=== PATIENT | female | born 1980 | race Caucasian/White ===

== ENCOUNTER 2017-12-18 11:49 | Emergency (ER) | payer OTHER ==
[~2017-12-18] VITALS: Ht 172.7 cm; Wt 144.0 kg
[2017-12-18 11:55] VITALS: TEMP 36.4; Ht 172.7 cm; Wt 144.0 kg
[2017-12-18] MEDS ORDERED: SODIUM CHLORIDE 0.9% 1000ML 1,000 ML IV STA (12:49)
[2017-12-18] MEDS ORDERED: ONDANSETRON INJ 2 MG/ML 2 ML VIAL IV STA (12:49)
[2017-12-18 13:05] LABS: BASO % 0.2 %; BASO ABS # 0.01 K/uL (0-0.2); EOS % 0.8 %; EOS ABS # 0.05 K/uL (0-0.5); HEMATOCRIT 43.5 % (37-47); HEMOGLOBIN 15.3 g/dL (12.0-16.0); IG# 0.02 K/uL (0.00-0.02); LYMPH % 15.8 %; LYMPH ABS # 0.98 K/uL (1.2-3.4); MEAN CELL VOLUME 83.2 fL (80-100); MEAN CORPUSCULAR HEMOGLOBIN 29.3 pg (25-34); MEAN CORPUSCULAR HGB CONC 35.2 g/dl (32-36); MEAN PLATELET VOLUME 9.4 fL (7.4-10.4); MONO % 6.8 %; MONO ABS # 0.42 K/uL (0.11-0.59); NEUT % 76.1 %; NEUT ABS # 4.71 K/uL (1.4-6.5); PLATELET COUNT 170 K/uL (130-400); RED CELL DISTRIBUTION WIDTH CV 12.9 % (11.5-14.5); RED CELL DISTRIBUTION WIDTH SD 38.6 fL (36.4-46.3); WHITE BLOOD COUNT 6.19 K/uL (4.8-10.8)
--- NOTE | 2017-12-18 13:05 | EMERGENCY ROOM VISIT NOTE ---
History Report prepared by Sowmya: Dutch Witt Under the Supervision of: Dr. Tano Magallon D.O. First contact with patient: 12:39 Chief Complaint: NAUSEA Stated Complaint: VOMITING, DIARRHEA Nursing Triage Summary: pt here with nausea, upper abd pains, right back pain since last pm. pt states hx of ibs. pt states went 2 weeks without bm, last night went to bathroom, states first was black tarry, then was flesh colored, now is more yellow watery stool. History of Present Illness The patient is a 37 year old female who presents to the Emergency Room with complaints of a persistent illness that started yesterday afternoon. She states that she has a thyroid issue, and probably has IBS. The patient says that she goes through periods of constipation and diarrhea, and usually she vomits up bile during these episodes. The patient also gets black tarry stool at times. She says that she had not had a bowel movement in 2 weeks and it was getting uncomfortable for her. The patient states that she then had a bowel movement last night that was black and tarry. She says that afterward, she felt like something stabbed her in her lower right back. The patient states that she then had episodes of diarrhea overnight that was pale in color. She says that she started having episodes of vomiting this morning that was pale and foamy. The patient states that she usually feels better after vomiting, but after these episodes, she still feels badly. She says that she still has the back pain, and she has bad upper abdominal pain. The patient went to [facility] and was told to come here. She notes that her stool is currently more yellow and watery. She denies any chest pain. The patient notes no recent antibiotic use. She occasionally smokes cigarettes, but does not drink alcohol. She has a history of a complete hysterectomy. She notes that she has taken 4 Colace in the past week without relief. Source of History: patient Onset: Yesterday afternoon Position: other (global ) Quality: other (illness) Timing: other (persistent) Associated Symptoms: + vomiting, + abdominal pain, + back pain, + melena ( not new), + diarrhea, No chest pain Review of Systems See HPI for pertinent positives & negatives. A total of 10 systems reviewed and were otherwise negative. Past Medical & Surgical Medical Problems: (1) Constipation (2) Thyroid condition Surgical Problems: (1) H/O: hysterectomy Family History No pertinent family history Social History Smoking Status: Current Some Day Smoker Alcohol Use: none Drug Use: none Occupation Status: unemployed Current/Historical Medications Scheduled Docusate Sodium (Colace), 1 CAP PO BID Ondasetron Odt (Zofran Odt), 4 MG SL Q6H Scheduled PRN Oxycodone Immediate Rel Tab (Roxicodone Ir), 1-2 TAB PO Q4H PRN for Severe Pain Allergies Coded Allergies: Aspirin (Unverified Allergy, Intermediate, Vomiting, 12/18/17) Codeine (Unverified Allergy, Intermediate, Upset Stomach, 12/18/17) Physical Exam Vital Signs Date Time Temp Pulse Resp B/P (MAP) Pulse Ox O2 Delivery O2 Flow Rate FiO2 12/18/17 14:50 95 18 111/69 99 12/18/17 13:54 89 18 120/82 99 Room Air 12/18/17 11:55 36.4 111 16 137/92 98 Room Air Physical Exam GENERAL: Patient is awake, alert, and in no acute distress. Patient is resting comfortably and showing no signs of anxiety EYES: The conjunctivae are clear. The pupils are round and reactive. EARS, NOSE, MOUTH AND THROAT: The nose is without any evidence of any deformity. Mucous membranes are moist tongue is midline NECK: The neck is nontender and supple. RESPIRATORY: Normal respiratory effort is noted there is no evidence of wheezing rhonchi or rales CARDIOVASCULAR: Regular rate and rhythm noted there no murmurs rubs or gallops normal S1 normal S2 GASTROINTESTINAL: The abdomen is moderately distended and diffusely tender. There is significant epigastric and right upper quadrant tenderness to palpation. MUSCULOSKELETAL/EXTREMITIES: There is no evidence of gross deformity full range of motion is noted in the hips and shoulders SKIN: There is no obvious evidence of any rash. There are no petechiae, pallor or cyanosis noted. NEUROLOGIC: Patient is awake alert and oriented x3 strength is symmetric patellar reflexes are 2+ bilaterally Medical Decision & Procedures ER Provider Diagnostic Interpretation: Radiology results as stated below per my review and radiologist interpretation: SINGLE VIEW CHEST CLINICAL HISTORY: Generalized abdominal pain. Vomiting. FINDINGS: An AP, portable, upright chest radiograph is obtained. No prior studies are available for comparison at the time of dictation. The examination is mildly degraded by portable technique and patient rotation. The cardiomediastinal silhouette is unremarkable. The lungs and pleural spaces are clear. No pneumothorax is seen. The bony thorax is grossly intact. IMPRESSION: No active disease in the chest. Electronically signed by: Javan Mcdaniel M.D. 12/18/2017 1:12 PM Dictated Date/Time: 12/18/2017 1:11 PM A[address]OMEN AND PELVIS CT WITHOUT CONTRAST CT DOSE: 1232.84 mGycm HISTORY: right flank pain TECHNIQUE: Multiaxial CT images of the abdomen and pelvis were performed without contrast. A dose lowering technique was utilized adhering to the principles of ALARA. COMPARISON STUDY: None. FINDINGS: The lung bases are clear. No pneumoperitoneum. No pneumatosis. No fractures within the visualized osseous structures. No hepatic or splenic masses. Hepatic steatosis. The unenhanced gallbladder, pancreas, and adrenal glands are unremarkable. No renal or ureteral calculi. No hydronephrosis. The bladder is not well-distended but appears unremarkable. No retroperitoneal lymphadenopathy. The uterus is surgically absent. Suboptimal evaluation for bowel pathology due to the lack of intravenous and oral contrast. However, there is no definite bowel wall thickening or obstruction. Liquid stool within the colon. Normal appendix. IMPRESSION: 1. No bowel wall thickening or obstruction. 2. Liquid stool throughout the colon. This could represent a gastroenteritis. 3. No renal or ureteral calculi. No hydronephrosis. 4. Normal appendix. Electronically signed by: Lukasz Singh M.D. 12/18/2017 1:30 PM Dictated Date/Time: 12/18/2017 1:23 PM Laboratory Results 12/18/17 12:55 Red Blood Count 5.23, Mean Corpuscular Volume 83.2, Mean Corpuscular Hemoglobin 29.3, Mean Corpuscular Hemoglobin Concent 35.2, Mean Platelet Volume 9.4, Neutrophils (%) (Auto) 76.1, Lymphocytes (%) (Auto) 15.8, Monocytes (%) (Auto) 6.8, Eosinophils (%) (Auto) 0.8, Basophils (%) (Auto) 0.2, Neutrophils # (Auto) 4.71, Lymphocytes # (Auto) 0.98, Monocytes # (Auto) 0.42, Eosinophils # (Auto) 0.05, Basophils # (Auto) 0.01 12/18/17 12:55 Test 4/6/18 12:55 12/18/17 13:56 White Blood Count 6.19 K/uL (4.8-10.8) Red Blood Count 5.23 M/uL (4.2-5.4) Hemoglobin 15.3 g/dL (12.0-16.0) Hematocrit 43.5 % (37-47) Mean Corpuscular Volume 83.2 fL (80-100) Mean Corpuscular Hemoglobin 29.3 pg (25-34) Mean Corpuscular Hemoglobin Concent 35.2 g/dl (32-36) Platelet Count 170 K/uL (130-400) Mean Platelet Volume 9.4 fL (7.4-10.4) Neutrophils (%) (Auto) 76.1 % Lymphocytes (%) (Auto) 15.8 % Monocytes (%) (Auto) 6.8 % Eosinophils (%) (Auto) 0.8 % Basophils (%) (Auto) 0.2 % Neutrophils # (Auto) 4.71 K/uL (1.4-6.5) Lymphocytes # (Auto) 0.98 K/uL (1.2-3.4) Monocytes # (Auto) 0.42 K/uL (0.11-0.59) Eosinophils # (Auto) 0.05 K/uL (0-0.5) Basophils # (Auto) 0.01 K/uL (0-0.2) RDW Standard Deviation 38.6 fL (36.4-46.3) RDW Coefficient of Variation 12.9 % (11.5-14.5) Immature Granulocyte % (Auto) 0.3 % Immature Granulocyte # (Auto) 0.02 K/uL (0.00-0.02) Anion Gap 5.0 mmol/L (3-11) Est Creatinine Clear Calc Drug Dose 181.2 ml/min Estimated GFR () 132.4 Estimated GFR (Non- 114.2 BUN/Creatinine Ratio 14.0 (10-20) Calcium Level 8.4 mg/dl (8.5-10.1) Total Bilirubin 0.5 mg/dl (0.2-1) Direct Bilirubin 0.1 mg/dl (0-0.2) Aspartate Amino Transf (AST/SGOT) 40 U/L (15-37) Alanine Aminotransferase (ALT/SGPT) 49 U/L (12-78) Alkaline Phosphatase 78 U/L (45-117) Total Protein 7.3 gm/dl (6.4-8.2) Albumin 3.3 gm/dl (3.4-5.0) Lipase 68 U/L (73-393) Urine Color DK YELLOW Urine Appearance CLEAR (CLEAR) Urine pH 5.0 (4.5-7.5) Urine Specific [place] 1.025 (1.000-1.030) Urine Protein NEG (NEG) Urine Glucose (UA) NEG (NEG) Urine Ketones NEG (NEG) Urine Occult Blood NEG (NEG) Urine Nitrite NEG (NEG) Urine Bilirubin NEG (NEG) Urine Urobilinogen NEG (NEG) Urine Leukocyte Esterase NEG (NEG) Laboratory results per my review. Medications Administered Medications (Trade) Dose Ordered Sig/Davin Route Start Time Stop Time Status Last Admin Dose Admin Ondansetron HCl (Zofran Inj) 4 mg NOW STAT IV 12/18/17 12:49 12/18/17 12:50 DC 12/18/17 13:02 4 MG Sodium Chloride 1,000 ml @ 999 mls/hr Q1H1M STAT IV 12/18/17 12:49 12/18/17 13:49 DC 12/18/17 13:02 999 MLS/HR ED Course 1241: The patient was evaluated in room A9B. A complete history and physical examination were performed. 1249: NSS 1000 ml @ 999 mls/hr IV, Zofran Inj 4 mg IV. 1436: Upon reevaluation, the patient is resting. I discussed the results and treatment plan with her. She verbalized agreement of the treatment plan. She was discharged home. Medical Decision Differential diagnosis: Etiologies such as appendicitis, diverticulitis, PUD, biliary pathology, UTI, pancreatitis, obstruction, mesenteric ischemia, aortic pathology, infections, inflammatory bowel disease, renal colic, as well as others were entertained. Nursing notes reviewed. The patient is a 37-year-old female who presented to the emergency department for an evaluation of upper abdominal pain nausea and vomiting and diarrhea. The patient's physical exam was consistent with significant upper abdominal pain. For this reason radiographic studies were obtained. The patient was treated with IV fluids and IV anti-medics. On subsequent reevaluation she was somewhat improved. I discussed patient's laboratory and radiographic studies with her. She was encouraged to rest and avoid any strenuous activity. She was encouraged to continue all medications as prescribed and follow-up with her family doctor soon as possible. Otherwise I recommended that she return the emergency department immediately if symptoms change worsen or the need arises. Medication Reconcilliation Current Medication List: was personally reviewed by me Blood Pressure Screening Patient's blood pressure: Elevated blood pressure Blood pressure disposition: Elevated BP felt to be situational Impression Primary Impression: Nausea, vomiting and diarrhea Additional Impression: Epigastric abdominal pain Scribe Attestation The scribe's documentation has been prepared under my direction and personally reviewed by me in its entirety. I confirm that the note above accurately reflects all work, treatment, procedures, and medical decision making performed by me. Departure Information Dispostion Home / Self-Care Prescriptions Oxycodone Immediate Rel Tab (ROXICODONE IR) 5 Mg Tab 1-2 TAB PO Q4H Y for Severe Pain, #20 TAB Prov: Tano Magallon, DO 12/18/17 Ondasetron Odt (ZOFRAN ODT) 4 Mg Tab 4 MG SL Q6H for Nausea, #20 TAB Prov: Tano Magallon, DO 18 Referrals Andrez Márquez M.D. (PCP) Patient Instructions ED Nausea Vomiting, [facility] Additional Instructions Continue all medications as prescribed. Drink plenty clear liquids. Call your family doctor to schedule a follow-up appointment for as soon as possible. Continue using Motrin and Tylenol as directed for mild pain. Return to the emergency department immediately if symptoms change worsen or the need arises. Problem Qualifiers
--- NOTE | 2017-12-18 13:14 | DIAGNOSTIC IMAGING REPORT ---
SINGLE VIEW CHEST CLINICAL HISTORY: Generalized abdominal pain. Vomiting. FINDINGS: An AP, portable, upright chest radiograph is obtained. No prior studies are available for comparison at the time of dictation. The examination is mildly degraded by portable technique and patient rotation. The cardiomediastinal silhouette is unremarkable. The lungs and pleural spaces are clear. No pneumothorax is seen. The bony thorax is grossly intact. IMPRESSION: No active disease in the chest. Electronically signed by: Javan Mcdaniel M.D. 12/18/2017 1:12 PM Dictated Date/Time: 12/18/2017 1:11 PM
[2017-12-18 13:20] LABS: ALBUMIN 3.3 gm/dl (3.4-5.0); CALCIUM 8.4 mg/dl (8.5-10.1); CREATININE 0.65 mg/dl (0.60-1.20); POTASSIUM 3.6 mmol/L (3.5-5.1)
[2017-12-18 13:23] LABS: TOTAL PROTEIN 7.3 gm/dl (6.4-8.2)
--- NOTE | 2017-12-18 13:32 | DIAGNOSTIC IMAGING REPORT ---
ABDOMEN AND PELVIS CT WITHOUT CONTRAST CT DOSE: 1232.84 mGycm HISTORY: right flank pain TECHNIQUE: Multiaxial CT images of the abdomen and pelvis were performed without contrast. A dose lowering technique was utilized adhering to the principles of ALARA. COMPARISON STUDY: None. FINDINGS: The lung bases are clear. No pneumoperitoneum. No pneumatosis. No fractures within the visualized osseous structures. No hepatic or splenic masses. Hepatic steatosis. The unenhanced gallbladder, pancreas, and adrenal glands are unremarkable. No renal or ureteral calculi. No hydronephrosis. The bladder is not well-distended but appears unremarkable. No retroperitoneal lymphadenopathy. The uterus is surgically absent. Suboptimal evaluation for bowel pathology due to the lack of intravenous and oral contrast. However, there is no definite bowel wall thickening or obstruction. Liquid stool within the colon. Normal appendix. IMPRESSION: 1. No bowel wall thickening or obstruction. 2. Liquid stool throughout the colon. This could represent a gastroenteritis. 3. No renal or ureteral calculi. No hydronephrosis. 4. Normal appendix. Electronically signed by: Lukasz Singh M.D. 12/18/2017 1:30 PM Dictated Date/Time: 12/18/2017 1:23 PM
[2017-12-18] MEDS ORDERED: DOCU-94 PO (13:42)
[2017-12-18] MEDS ORDERED: ONDA4TAB10 SL (14:38)
[2017-12-18] MEDS ORDERED: OXYC1TAB3 PO (14:38)
[2017-12-18 14:50] VITALS: BP 111/69; PULSE 95; O2SAT 99
== END 2017-12-18 14:51 | disposition home or self-care (01) ==
LOC: C.EDB 11:52 → C.EDA 14:51
DX: R10.13 Epigastric pain (principal); R11.2 Nausea with vomiting, unspecified; R19.7 Diarrhea, unspecified; R03.0 Elevated blood-pressure reading, without diagnosis of hypertension; Z88.6 Allergy status to analgesic agent

== ENCOUNTER 2017-12-21 11:14 | Emergency (ER) | payer OTHER ==
[~2017-12-21] VITALS: Ht 172.7 cm; Wt 144.4 kg
[~2017-12-21 11:14] MED LIST: DOCU-94 PO; ONDA4TAB10 SL; OXYC1TAB3 PO
[2017-12-21 11:29] VITALS: TEMP 36.8; Ht 172.7 cm; Wt 144.4 kg
[2017-12-21] MEDS ORDERED: SODIUM CHLORIDE 0.9% 1000ML 1,000 ML IV STA (13:36)
[2017-12-21] MEDS ORDERED: MoRPHine SULFATE 10 MG/ML CARP/VIAL IV STA (13:36)
[2017-12-21] MEDS ORDERED: ONDANSETRON INJ 2 MG/ML 2 ML VIAL IV STA (13:36)
[2017-12-21] MEDS ORDERED: OPTIRAY 320 IV PRN (13:45)
[2017-12-21 14:17] LABS: BASO % 0.3 %; BASO ABS # 0.02 K/uL (0-0.2); EOS % 2.3 %; EOS ABS # 0.14 K/uL (0-0.5); HEMATOCRIT 43.9 % (37-47); HEMOGLOBIN 15.5 g/dL (12.0-16.0); IG# 0.01 K/uL (0.00-0.02); LYMPH % 28.4 %; LYMPH ABS # 1.72 K/uL (1.2-3.4); MEAN CELL VOLUME 82.8 fL (80-100); MEAN CORPUSCULAR HEMOGLOBIN 29.2 pg (25-34); MEAN CORPUSCULAR HGB CONC 35.3 g/dl (32-36); MEAN PLATELET VOLUME 9.4 fL (7.4-10.4); MONO ABS # 0.36 K/uL (0.11-0.59); NEUT % 62.8 %; PLATELET COUNT 190 K/uL (130-400); RED CELL DISTRIBUTION WIDTH CV 12.9 % (11.5-14.5); RED CELL DISTRIBUTION WIDTH SD 38.6 fL (36.4-46.3); WHITE BLOOD COUNT 6.05 K/uL (4.8-10.8)
[2017-12-21 14:35] LABS: BLOOD UREA NITROGEN 6 mg/dl (7-18); CREATININE 0.56 mg/dl (0.60-1.20); GLUCOSE 87 mg/dl (70-99); POTASSIUM 3.3 mmol/L (3.5-5.1); SODIUM 136 mmol/L (136-145)
[2017-12-21 14:36] LABS: ALBUMIN 3.6 gm/dl (3.4-5.0); ALT/SGPT 99 U/L (12-78); AST/SGOT 80 U/L (15-37); CALCIUM 8.5 mg/dl (8.5-10.1); CARBON DIOXIDE 25 mmol/L (21-32); LIPASE 73 U/L (73-393)
[2017-12-21 14:38] LABS: ALKALINE PHOSPHATASE 85 U/L (45-117); TOTAL PROTEIN 7.4 gm/dl (6.4-8.2)
--- NOTE | 2017-12-21 14:50 | EMERGENCY ROOM VISIT NOTE ---
ED Visit Note First contact with patient: 13:01 CHIEF COMPLAINT: Abdominal pain, nausea HISTORY OF PRESENTING ILLNESS: This is a 37-year-old female who presents to the emergency department with complaint of right-sided abdominal pain. Patient states that she started having symptoms of lower back pain with vomiting and diarrhea 3-4 days ago. She was seen in this emergency department on Thursday, had a CT of the abdomen and states she was told "I was just full of stool." Patient was discharged home on oxycodone and Zofran, which she states she has been taking as needed. She states that her vomiting and diarrhea stopped yesterday, but she continues to have nausea. She also complains of lightheadedness and feeling like she might pass out, but denies any syncope. Her pain moved from her back into her right side yesterday as well and has become constant and more severe. She states now her whole abdomen feels bloated and hard, and pain on her right side has been severe, she is unable to get comfortable in any position, currently rates the pain as 6/10. She states that she feels like she needs to have a bowel movement and has not been unable to, but states that she has been passing gas. She reports a history of IBS where she fluctuates between diarrhea and constipation, but states she has never gotten pain like this with her IBS flares in the past. She had a follow- up visit with her primary care provider today from her ED visit a few days ago, they sent her to the ED for further evaluation. She denies any headaches, vision changes, neck pain, chest pain, shortness of breath, urinary symptoms, abnormal vaginal bleeding or discharge, or rash. She has a history of a partial hysterectomy, states the left one ovary, and also had 2 C-sections and an exploratory laparotomy for removing adhesions around her bladder. She has not had anything to eat today, and has only had small sips of water, which she states she has been able to keep down. REVIEW OF SYSTEMS: A complete 10 point review of systems was reviewed with the patient with pertinent positives and negatives as per history of present illness. All else were negative. PAST MEDICAL HISTORY: Reviewed in chart. SOCIAL HISTORY: Lives at home. She is a current smoker, denies alcohol or recreational drug use. ALLERGIES: Reviewed in chart. PHYSICAL EXAM: CONSTITUTIONAL: Pleasant and cooperative. No acute distress, but does appear uncomfortable and in pain. Tearful during the exam. Mildly dehydrated, but otherwise well appearing and well nourished. Obese. HEENT: Normocephalic, atraumatic. Pupils equal, round and reactive to light, EOMI. TMs normal. Pharynx normal. Tacky mucous membranes. NECK: Supple, full active range of motion without discomfort. RESPIRATORY: Clear to auscultation bilaterally with no wheezing, crackles, rhonchi or stridor. Equal expansion bilaterally. CARDIOVASCULAR: Regular rate and rhythm with no murmurs, rubs or gallops. Normal peripheral perfusion. No edema. GASTROINTESTINAL: Soft, moderately tender in the right upper and lower quadrant to palpation, positive guarding of the right side of the abdomen, no rebound tenderness. Obese abdomen, mildly distended. Positive McBurney's and Rovsing. No palpable masses or HSM. Hypoactive bowel sounds throughout all quadrants. No CVA tenderness bilaterally. MUSCULOSKELETAL: Full range of motion of all joints without discomfort. INTEGUMENTARY: No rash or other significant dermatologic conditions noted. NEUROLOGIC: Alert and oriented X 4 with normal affect. Normal strength and sensation in all 4 extremities. No focal neurologic deficits noted. Normal speech. Normal gait observed. ED COURSE AND MEDICAL DECISION MAKING: CC: Patient presenting with complaint of abdominal pain and nausea, lightheadedness DIFFERENTIAL DIAGNOSIS: Includes, but not limited to appendicitis, cholecystitis, cholelithiasis, pancreatitis, GERD, gastritis, gastroenteritis, PUD, constipation, inflammatory bowel disease, IBS, diverticulitis, mesenteric adenitis, among others. INTERPRETATION OF LABS: No leukocytosis, no anemia, mild hypokalemia, no other significant electrolyte abnormalities, normal renal function, mildly elevated transaminases, liver enzymes otherwise normal, normal lipase. UA negative, negative urine . IMAGING: GALLBLADDER-ABD LIMITED HISTORY: 37 years-old Female RUQ pain, eval GB acute right upper quadrant abdominal pain COMPARISON: CT abdomen and pelvis 12/18/2017 TECHNIQUE: Multiple real-time sonographic images of the abdominal right upper quadrant were obtained assessing grayscale appearance and color flow. FINDINGS: The study is limited secondary to patient body habitus. Pancreas is not well seen. There is mildly increased echogenicity of the liver with poor through transmission which reflect mild fatty infiltration. No intrahepatic biliary ductal dilation. Gallbladder is sub-visualized secondary to body habitus. Layering shadowing gallstones with gallbladder sludge are seen within the gallbladder lumen. No wall thickening or pericholecystic fluid collections. Sonographic Handy sign reported as negative. Common bile duct is normal, 5 mm. Right kidney measures 13.5 cm in length and is within normal limits without hydronephrosis. IMPRESSION: 1. Limited study secondary to patient body habitus. 2. Cholelithiasis without sonographic evidence of acute cholecystitis or biliary ductal dilation. ----- CT SCAN OF THE ABDOMEN AND PELVIS WITH IV CONTRAST CLINICAL HISTORY: Right-sided abdominal pain. COMPARISON STUDY: Abdominal CT dated 12/18/2017. Abdominal ultrasound dated 12/21/2017. TECHNIQUE: Following the IV administration of 120 cc of Optiray 320, CT scan of the abdomen and pelvis is performed from the lung bases to the proximal femora. Images are reviewed in the axial, sagittal, and coronal planes. IV contrast was administered without complication. A dose lowering technique was utilized adhering to the principles of ALARA. The examination is degraded by large body habitus, and by streak artifact from the body wall abutting the CT gantry. CT DOSE: 1878.27 mGy.cm FINDINGS: Lung bases: The heart is normal in size and without pericardial effusion. The lung bases are clear noting dependent atelectasis. Liver: The contrast-enhanced liver is enlarged, measuring 21.0 cm and length. The liver demonstrates diffusely diminished attenuation consistent with hepatic steatosis. There is no intrahepatic biliary ductal dilatation. The hepatic veins and portal veins are patent. Gallbladder: Unremarkable. Spleen: Spleen is enlarged, measuring 15 cm in length. Pancreas: Atrophic for age. Adrenal glands: Unremarkable. Kidneys: The contrast enhanced kidneys are normal in size and without hydronephrosis. The kidneys enhance symmetrically. A subcentimeter cortical hypodensity in the left kidney likely represents a cyst but is too small for definitive characterization. Abdominal vasculature: The abdominal aorta is normal in course and caliber noting mild atherosclerotic calcification. Bowel: The small bowel and colon are normal in course and caliber. The appendix is well-visualized and normal. Peritoneum: There is no intraperitoneal free air or abdominal ascites. There is a fat-containing umbilical hernia. Lymphadenopathy: None. Pelvic viscera: The bladder is normal as visualized. The uterus is surgically absent. No adnexal lesion is seen. Skeletal structures: No lytic or blastic lesions are seen. Mild sclerotic change is noted in the sacroiliac joints. IMPRESSION: 1. There are no acute infectious or inflammatory findings in the abdomen or pelvis. 2. Hepatomegaly and hepatic steatosis. 3. Splenomegaly. MEDICATION RECONCILIATION: I attest that I have personally reviewed the patient 's current medication list. INITIAL VITAL SIGNS REVIEW: I reviewed the patient's initial vital signs and interpret them as follows: T: Afebrile; BP: Normotensive; HR: Within normal limits; RR: Within normal limits; Pulse Ox: Within normal limits on room air. Blood pressure screening: The patient was found to have normal blood pressure on screening and does not require follow-up for repeat blood pressure check. SUMMARY: Patient was evaluated at bedside, history and physical exam performed. Patient is alert and oriented, in no acute distress, but does appear to be very uncomfortable, tearful, pacing in the room and holding her right side. Patient does have tenderness of the entire right side of the abdomen, including right lower quadrant tenderness to palpation. The patient has increased pain on the right with palpation of the left. The abdomen is generally uncomfortable, mildly distended and obese. I reviewed her previous ED visit on 12/18, her CT of the abdomen/pelvis did note liquid stool throughout the colon suspicious for gastroenteritis. Orders were placed at bedside for labs, UA and urine , IV fluids for hydration, IV Zofran and morphine for nausea and pain, right upper quadrant ultrasound and CT abdomen/pelvis with IV contrast to evaluate for worsening abdominal pain. Patient discussed with Dr. Gibson, who agrees with my assessment and plan. Labs and imaging reviewed as above, no acute abnormalities to explain patient's pain. I do suspect some of her symptoms may be secondary to her IBS, which may have been aggravated by her recent suspected gastroenteritis. She was given IM Bentyl, with good improvement in her pain. Rx for Bentyl was sent to pharmacy and patient was educated regarding its use. Patient reassessed multiple times throughout ED stay, she remained much improved with her pain, as well as her nausea, and is tolerating PO without difficulty. referral information for GI follow-up as well. Patient was updated on all results and plan for discharge, she was encouraged to follow closely with her PCP, and was given Patient was also given strict return precautions should her symptoms worsen, she verbalized understanding. Patient was discharged home in stable condition and ambulatory. Problem List Medical Problems: (1) Constipation Status: Chronic (2) Thyroid condition Status: Chronic Surgical Problems: (1) H/O: hysterectomy Status: Resolved Current/Historical Medications Scheduled Dicyclomine Hcl (Bentyl), 1 CAP PO TID Docusate Sodium (Colace), 1 CAP PO BID Ondasetron Odt (Zofran Odt), 4 MG SL Q6H Scheduled PRN Oxycodone Immediate Rel Tab (Roxicodone Ir), 1-2 TAB PO Q4H PRN for Severe Pain Allergies Coded Allergies: Aspirin (Unverified Allergy, Intermediate, Vomiting, 12/18/17) Codeine (Unverified Allergy, Intermediate, Upset Stomach, 12/18/17) Vital Signs Date Time Temp Pulse Resp B/P (MAP) Pulse Ox O2 Delivery O2 Flow Rate FiO2 12/21/17 18:29 75 20 129/62 96 12/21/17 17:12 78 12/21/17 16:52 71 20 123/75 99 Room Air 12/21/17 16:00 66 18 119/73 97 Room Air 12/21/17 14:40 71 17 129/79 97 12/21/17 13:16 85 20 159/119 100 12/21/17 11:29 36.8 83 18 137/88 96 Room Air Laboratory Results 12/21/17 13:36 Red Blood Count 5.30, Mean Corpuscular Volume 82.8, Mean Corpuscular Hemoglobin 29.2, Mean Corpuscular Hemoglobin Concent 35.3, Mean Platelet Volume 9.4, Neutrophils (%) (Auto) 62.8, Lymphocytes (%) (Auto) 28.4, Monocytes (%) (Auto) 6.0, Eosinophils (%) (Auto) 2.3, Basophils (%) (Auto) 0.3, Neutrophils # (Auto) 3.80, Lymphocytes # (Auto) 1.72, Monocytes # (Auto) 0.36, Eosinophils # (Auto) 0.14, Basophils # (Auto) 0.02 12/21/17 13:36 Test 12/21/17 13:36 12/21/17 15:05 White Blood Count 6.05 K/uL (4.8-10.8) Red Blood Count 5.30 M/uL (4.2-5.4) Hemoglobin 15.5 g/dL (12.0-16.0) Hematocrit 43.9 % (37-47) Mean Corpuscular Volume 82.8 fL (80-100) Mean Corpuscular Hemoglobin 29.2 pg (25-34) Mean Corpuscular Hemoglobin Concent 35.3 g/dl (32-36) Platelet Count 190 K/uL (130-400) Mean Platelet Volume 9.4 fL (7.4-10.4) Neutrophils (%) (Auto) 62.8 % Lymphocytes (%) (Auto) 28.4 % Monocytes (%) (Auto) 6.0 % Eosinophils (%) (Auto) 2.3 % Basophils (%) (Auto) 0.3 % Neutrophils # (Auto) 3.80 K/uL (1.4-6.5) Lymphocytes # (Auto) 1.72 K/uL (1.2-3.4) Monocytes # (Auto) 0.36 K/uL (0.11-0.59) Eosinophils # (Auto) 0.14 K/uL (0-0.5) Basophils # (Auto) 0.02 K/uL (0-0.2) RDW Standard Deviation 38.6 fL (36.4-46.3) RDW Coefficient of Variation 12.9 % (11.5-14.5) Immature Granulocyte % (Auto) 0.2 % Immature Granulocyte # (Auto) 0.01 K/uL (0.00-0.02) Anion Gap 8.0 mmol/L (3-11) Est Creatinine Clear Calc Drug Dose 210.7 ml/min Estimated GFR () 139.0 Estimated GFR (Non- 120.0 BUN/Creatinine Ratio 11.1 (10-20) Calcium Level 8.5 mg/dl (8.5-10.1) Total Bilirubin 0.3 mg/dl (0.2-1) Direct Bilirubin < 0.1 mg/dl (0-0.2) Aspartate Amino Transf (AST/SGOT) 80 U/L (15-37) Alanine Aminotransferase (ALT/SGPT) 99 U/L (12-78) Alkaline Phosphatase 85 U/L (45-117) Total Protein 7.4 gm/dl (6.4-8.2) Albumin 3.6 gm/dl (3.4-5.0) Lipase 73 U/L (73-393) Urine Color YELLOW Urine Appearance CLEAR (CLEAR) Urine pH 6.0 (4.5-7.5) Urine Specific [place] 1.007 (1.000-1.030) Urine Protein NEG (NEG) Urine Glucose (UA) NEG (NEG) Urine Ketones NEG (NEG) Urine Occult Blood NEG (NEG) Urine Nitrite NEG (NEG) Urine Bilirubin NEG (NEG) Urine Urobilinogen NEG (NEG) Urine Leukocyte Esterase NEG (NEG) Urine Test NEG (NEG) Medications Administered Medications (Trade) Dose Ordered Sig/Davin Route Start Time Stop Time Status Last Admin Dose Admin Sodium Chloride 1,000 ml @ 999 mls/hr Q1H1M STAT IV 12/21/17 13:36 12/21/17 14:36 DC 12/21/17 14:09 999 MLS/HR Ondansetron HCl (Zofran Inj) 4 mg NOW STAT IV 12/21/17 13:36 12/21/17 13:41 DC 12/21/17 14:09 4 MG Morphine Sulfate (MoRPHine SULFATE INJ) 6 mg NOW STAT IV 12/21/17 13:36 12/21/17 13:41 DC 12/21/17 14:09 6 MG Dicyclomine HCl (Bentyl Inj) 20 mg NOW ONCE IM 12/21/17 17:30 12/21/17 17:31 DC 12/21/17 17:25 20 MG Departure Information Impression Primary Impression: Abdominal pain Additional Impression: Nausea Dispostion Home / Self-Care Condition GOOD Prescriptions Dicyclomine Hcl (BENTYL) 10 Mg Cap 1 CAP PO TID for 30 Days, #90 CAP 0 Refills Prov: Natalie Lai CRNP 12/21/17 Referrals Andrez Márquez M.D. (PCP) Abraham Villagran M.D. Patient Instructions ED Abdominal Pain Gallstone Poss, ED Abdominal Pain Unkn Cause, ED Diet Iron, [facility] Additional Instructions You have been treated in the Emergency Department for your abdominal pain and nausea. Laboratory results and imaging studies have ruled out any emergent causes for your symptoms which would warrant admission or surgery. You do have gallstones, and your liver and spleen appear to be enlarged, this should be followed up by your primary care provider. Continue your prescribed pain and nausea medications as needed. You have been prescribed Bentyl, to be taken as prescribed for treatment of your IBS. For pain control, you can use the following [id number] medicines (if >12 yo): - Regular strength (325mg/tab) Tylenol (acetaminophen) 2 tabs every 4-6 hours as needed. Do not exceed 10 tablets in a 24 hour period. Avoid taking more than 3000 mg of Tylenol per day. This includes any other sources of acetaminophen you may take on a regular basis. - Regular strength (200 mg/tab) Advil (ibuprofen) 3 tabs every 6-8 6 hours as needed. Do not exceed a dose of 2400 mg per day. Drink plenty of fluids to stay well hydrated. Stick with a bland diet until your symptoms are improving. Please follow-up with your Primary Care Provider in the next few days. You have also been provided with the contact information for a gastroenterology specialist. Please call to set up an appointment for follow-up if your abdominal pain symptoms persist. Return to the emergency department for severe worsening abdominal or back pain, worsening nausea/vomiting, vomiting blood, inability to tolerate fluids, blood in your stool or urine, fevers > 101.5, severe dizziness or passing out, or any other concerns. Work Instructions Return To Work: 2 days Problem Qualifiers Primary Impression: Abdominal pain Abdominal location: right upper quadrant Qualified Codes: R10.11 - Right upper quadrant pain
--- NOTE | 2017-12-21 15:42 | DIAGNOSTIC IMAGING REPORT ---
GALLBLADDER-ABD LIMITED HISTORY: 37 years-old Female RUQ pain, eval GB acute right upper quadrant abdominal pain COMPARISON: CT abdomen and pelvis 12/18/2017 TECHNIQUE: Multiple real-time sonographic images of the abdominal right upper quadrant were obtained assessing grayscale appearance and color flow. FINDINGS: The study is limited secondary to patient body habitus. Pancreas is not well seen. There is mildly increased echogenicity of the liver with poor through transmission which reflect mild fatty infiltration. No intrahepatic biliary ductal dilation. Gallbladder is sub-visualized secondary to body habitus. Layering shadowing gallstones with gallbladder sludge are seen within the gallbladder lumen. No wall thickening or pericholecystic fluid collections. Sonographic Handy sign reported as negative. Common bile duct is normal, 5 mm. Right kidney measures 13.5 cm in length and is within normal limits without hydronephrosis. IMPRESSION: 1. Limited study secondary to patient body habitus. 2. Cholelithiasis without sonographic evidence of acute cholecystitis or biliary ductal dilation. The above report was generated using voice recognition software. It may contain grammatical, syntax or spelling errors. Electronically signed by: Krzysztof Granda M.D. 12/21/2017 3:41 PM Dictated Date/Time: 12/21/2017 3:37 PM
--- NOTE | 2017-12-21 16:48 | DIAGNOSTIC IMAGING REPORT ---
CT SCAN OF THE ABDOMEN AND PELVIS WITH IV CONTRAST CLINICAL HISTORY: Right-sided abdominal pain. COMPARISON STUDY: Abdominal CT dated 12/18/2017. Abdominal ultrasound dated 12/21/2017. TECHNIQUE: Following the IV administration of 120 cc of Optiray 320, CT scan of the abdomen and pelvis is performed from the lung bases to the proximal femora. Images are reviewed in the axial, sagittal, and coronal planes. IV contrast was administered without complication. A dose lowering technique was utilized adhering to the principles of ALARA. The examination is degraded by large body habitus, and by streak artifact from the body wall abutting the CT gantry. CT DOSE: 1878.27 mGy.cm FINDINGS: Lung bases: The heart is normal in size and without pericardial effusion. The lung bases are clear noting dependent atelectasis. Liver: The contrast-enhanced liver is enlarged, measuring 21.0 cm and length. The liver demonstrates diffusely diminished attenuation consistent with hepatic steatosis. There is no intrahepatic biliary ductal dilatation. The hepatic veins and portal veins are patent. Gallbladder: Unremarkable. Spleen: Spleen is enlarged, measuring 15 cm in length. Pancreas: Atrophic for age. Adrenal glands: Unremarkable. Kidneys: The contrast enhanced kidneys are normal in size and without hydronephrosis. The kidneys enhance symmetrically. A subcentimeter cortical hypodensity in the left kidney likely represents a cyst but is too small for definitive characterization. Abdominal vasculature: The abdominal aorta is normal in course and caliber noting mild atherosclerotic calcification. Bowel: The small bowel and colon are normal in course and caliber. The appendix is well-visualized and normal. Peritoneum: There is no intraperitoneal free air or abdominal ascites. There is a fat-containing umbilical hernia. Lymphadenopathy: None. Pelvic viscera: The bladder is normal as visualized. The uterus is surgically absent. No adnexal lesion is seen. Skeletal structures: No lytic or blastic lesions are seen. Mild sclerotic change is noted in the sacroiliac joints. IMPRESSION: 1. There are no acute infectious or inflammatory findings in the abdomen or pelvis. 2. Hepatomegaly and hepatic steatosis. 3. Splenomegaly. Electronically signed by: Javan Mcdaniel M.D. 12/21/2017 4:47 PM Dictated Date/Time: 12/21/2017 4:41 PM
[2017-12-21] MEDS ORDERED: DICY10CA55 PO (17:25)
[2017-12-21] MEDS ORDERED: DICYCLOMINE HCL 10 MG/ML 2 ML AMP IM ONE (17:30)
[2017-12-21 18:29] VITALS: BP 129/62; PULSE 75; O2SAT 96
== END 2017-12-21 18:30 | disposition home or self-care (01) ==
LOC: C.EDB 11:16 → C.EDA 18:30
DX: R10.9 Unspecified abdominal pain (principal); R11.0 Nausea; K80.20 Calculus of gallbladder without cholecystitis without obstruction; K59.00 Constipation, unspecified; E03.9 Hypothyroidism, unspecified; R16.1 Splenomegaly, not elsewhere classified; R16.0 Hepatomegaly, not elsewhere classified; F17.210 Nicotine dependence, cigarettes, uncomplicated

== ENCOUNTER 2018-01-01 10:04 | Emergency (ER) | payer OTHER ==
[~2018-01-01] VITALS: Ht 172.7 cm; Wt 140.0 kg
[~2018-01-01 10:04] MED LIST changes: +DICY10CA55 PO
[2018-01-01 10:26] VITALS: TEMP 36.9; Ht 172.7 cm; Wt 140.0 kg
[2018-01-01] MEDS ORDERED: SODIUM CHLORIDE 0.9% 1000ML 1,000 ML IV STA (10:44)
[2018-01-01] MEDS ORDERED: ONDANSETRON INJ 2 MG/ML 2 ML VIAL IV STA (10:44)
[2018-01-01] MEDS ORDERED: MAGN1SOL7 PO (10:55)
[2018-01-01] MEDS ORDERED: DICY10CA55 PO (10:59)
[2018-01-01] MEDS ORDERED: ZOFRAN ODT 4MG SL (10:59)
[2018-01-01 11:10] LABS: BASO % 0.1 %; BASO ABS # 0.01 K/uL (0-0.2); EOS % 2.2 %; EOS ABS # 0.15 K/uL (0-0.5); HEMATOCRIT 42.1 % (37-47); HEMOGLOBIN 14.7 g/dL (12.0-16.0); IG# 0.01 K/uL (0.00-0.02); LYMPH % 31.1 %; LYMPH ABS # 2.09 K/uL (1.2-3.4); MEAN CELL VOLUME 83.4 fL (80-100); MEAN CORPUSCULAR HEMOGLOBIN 29.1 pg (25-34); MEAN CORPUSCULAR HGB CONC 34.9 g/dl (32-36); MEAN PLATELET VOLUME 9.5 fL (7.4-10.4); MONO % 7.6 %; MONO ABS # 0.51 K/uL (0.11-0.59); NEUT % 58.9 %; NEUT ABS # 3.94 K/uL (1.4-6.5); PLATELET COUNT 181 K/uL (130-400); RED CELL DISTRIBUTION WIDTH CV 13.2 % (11.5-14.5); RED CELL DISTRIBUTION WIDTH SD 39.3 fL (36.4-46.3); WHITE BLOOD COUNT 6.71 K/uL (4.8-10.8)
[2018-01-01 11:28] LABS: ALBUMIN 3.3 gm/dl (3.4-5.0); CALCIUM 8.5 mg/dl (8.5-10.1); CREATININE 0.63 mg/dl (0.60-1.20); POTASSIUM 3.8 mmol/L (3.5-5.1)
[2018-01-01 11:30] LABS: TOTAL PROTEIN 7.3 gm/dl (6.4-8.2)
--- NOTE | 2018-01-01 11:53 | DIAGNOSTIC IMAGING REPORT ---
CHEST AND ABDOMEN 2 VIEWS HISTORY: GI bleed. constipation COMPARISON: Abdomen and pelvis CT 12/21/2017. Chest 12/18/2017. FINDINGS: The lungs are clear. The cardiomediastinal silhouette is within normal limits. There is no pneumoperitoneum or pneumatosis. The bowel gas pattern is unremarkable. No evidence for bowel obstruction. No pathologic calcifications. Moderate well-formed stool seen within the colon. IMPRESSION: No acute cardiopulmonary process. No evidence for bowel obstruction. Moderate well-formed stool within the colon. Electronically signed by: Lukasz Singh M.D. 01/01/2018 11:51 AM Dictated Date/Time: 01/01/2018 11:46 AM
--- NOTE | 2018-01-01 12:03 | EMERGENCY ROOM VISIT NOTE ---
History Report prepared by Sowmya: Taran Medrano Under the Supervision of: Dr. Tano Magallon D.O. First contact with patient: 10:41 Chief Complaint: CONSTIPATION Stated Complaint: CAN NOT POOP Nursing Triage Summary: pt here with no bm x 3 weeks. pt states was here in early december with diarrhea, hx of ibs. pt states has been digging some of her stool out herself. pt states having cramping in abd pt tried mag citrate and only liquid and bright red blood out. History of Present Illness The patient is a 37 year old female who presents to the Emergency Room with complaints of persistent constipation for the past couple of days. She reports that yesterday she got in hot water and tried to "scoop it out" and she only got "marble" sized pieces of stool out. Afterwards she tried to use an enema, and she only got out water and blood. This morning she had a quarter of a bottle of magnesium citrate, and she tried to have a bowel movement, though she only had pain, she passed gas, and she had blood with pushing and wiping. She notes that she has been having nausea, back pain, and abdominal pain. The patient states that she felt like she had a hemorrhoid, though she has never had one before. The patient states that she has been taking Bentyl for the past couple of weeks, and she states that she recently decreased it to once per day. She notes that she has never had regular bowel movements, and she states that a few weeks ago she has a similar episode of constipation. The patient reports that she is supposed to see a GI specialist in February. She has a history of a hysterectomy five years ago after a ruptured uterus. Source of History: patient Onset: the past couple of days Position: other (rectum) Quality: other (constipation) Timing: other (persistent) Associated Symptoms: + nausea, + abdominal pain, + back pain Review of Systems See HPI for pertinent positives & negatives. A total of 10 systems reviewed and were otherwise negative. Past Medical & Surgical Medical Problems: (1) Constipation (2) Thyroid condition Surgical Problems: (1) H/O: hysterectomy Family History No pertinent family history Social History Smoking Status: Current Some Day Smoker Alcohol Use: none Drug Use: none Occupation Status: unemployed Current/Historical Medications Scheduled Dicyclomine Hcl (Bentyl), 10 MG PO QAM Docusate Sodium (Colace), 1 CAP PO BID Magnesium Citrate (Magnesium Citrate), 1 DOSE PO UD Polyethylene Glycol 3350 (Miralax), 17 GM PO DAILY [Zofran Odt 4MG], 4 MG SL Q6H Allergies Coded Allergies: Aspirin (Unverified Allergy, Intermediate, Vomiting, 01/01/18) Codeine (Unverified Allergy, Intermediate, Upset Stomach, 01/01/18) Fish (Unverified Adverse Reaction, Intermediate, HIVES/VOMIT/TURN RED, ) Physical Exam Vital Signs Date Time Temp Pulse Resp B/P (MAP) Pulse Ox O2 Delivery O2 Flow Rate FiO2 01/01/18 14:03 72 140/97 99 01/01/18 12:17 65 129/78 100 Room Air 01/01/18 10:26 36.9 72 16 146/97 97 Room Air Physical Exam GENERAL: Patient is awake, alert, and in no acute distress. Patient is resting comfortably and showing no signs of anxiety EYES: The conjunctivae are clear. The pupils are round and reactive. EARS, NOSE, MOUTH AND THROAT: The nose is without any evidence of any deformity. Mucous membranes are moist tongue is midline NECK: The neck is nontender and supple. RESPIRATORY: Normal respiratory effort is noted there is no evidence of wheezing rhonchi or rales CARDIOVASCULAR: Regular rate and rhythm noted there no murmurs rubs or gallops normal S1 normal S2 GASTROINTESTINAL: The abdomen is moderately distended and diffusely tender. No guarding or rigidity. BACK: No midline tenderness or or step-off noted range of motion in flexion extension as well as rotation no signs of muscle spasm noted MUSCULOSKELETAL/EXTREMITIES: There is no evidence of gross deformity full range of motion is noted in the hips and shoulders SKIN: There is no obvious evidence of any rash. There are no petechiae, pallor or cyanosis noted. NEUROLOGIC: Patient is awake alert and oriented x3 strength is symmetric patellar reflexes are 2+ bilaterally Medical Decision & Procedures ER Provider Diagnostic Interpretation: Radiology results as stated below per my review and radiologist interpretation: CHEST AND ABDOMEN 2 VIEWS HISTORY: GI bleed. constipation COMPARISON: Abdomen and pelvis CT 12/21/2017. Chest 12/18/2017. FINDINGS: The lungs are clear. The cardiomediastinal silhouette is within normal limits. There is no pneumoperitoneum or pneumatosis. The bowel gas pattern is unremarkable. No evidence for bowel obstruction. No pathologic calcifications. Moderate well-formed stool seen within the colon. IMPRESSION: No acute cardiopulmonary process. No evidence for bowel obstruction. Moderate well-formed stool within the colon. Electronically signed by: Lukasz Singh M.D. 01/01/2018 11:51 AM Dictated Date/Time: 01/01/2018 11:46 AM Laboratory Results 01/01/18 10:55 Red Blood Count 5.05, Mean Corpuscular Volume 83.4, Mean Corpuscular Hemoglobin 29.1, Mean Corpuscular Hemoglobin Concent 34.9, Mean Platelet Volume 9.5, Neutrophils (%) (Auto) 58.9, Lymphocytes (%) (Auto) 31.1, Monocytes (%) (Auto) 7.6, Eosinophils (%) (Auto) 2.2, Basophils (%) (Auto) 0.1, Neutrophils # (Auto) 3.94, Lymphocytes # (Auto) 2.09, Monocytes # (Auto) 0.51, Eosinophils # (Auto) 0.15, Basophils # (Auto) 0.01 01/01/18 10:55 Test 01/01/18 10:55 01/01/18 11:05 White Blood Count 6.71 K/uL (4.8-10.8) Red Blood Count 5.05 M/uL (4.2-5.4) Hemoglobin 14.7 g/dL (12.0-16.0) Hematocrit 42.1 % (37-47) Mean Corpuscular Volume 83.4 fL (80-100) Mean Corpuscular Hemoglobin 29.1 pg (25-34) Mean Corpuscular Hemoglobin Concent 34.9 g/dl (32-36) Platelet Count 181 K/uL (130-400) Mean Platelet Volume 9.5 fL (7.4-10.4) Neutrophils (%) (Auto) 58.9 % Lymphocytes (%) (Auto) 31.1 % Monocytes (%) (Auto) 7.6 % Eosinophils (%) (Auto) 2.2 % Basophils (%) (Auto) 0.1 % Neutrophils # (Auto) 3.94 K/uL (1.4-6.5) Lymphocytes # (Auto) 2.09 K/uL (1.2-3.4) Monocytes # (Auto) 0.51 K/uL (0.11-0.59) Eosinophils # (Auto) 0.15 K/uL (0-0.5) Basophils # (Auto) 0.01 K/uL (0-0.2) RDW Standard Deviation 39.3 fL (36.4-46.3) RDW Coefficient of Variation 13.2 % (11.5-14.5) Immature Granulocyte % (Auto) 0.1 % Immature Granulocyte # (Auto) 0.01 K/uL (0.00-0.02) Anion Gap 5.0 mmol/L (3-11) Est Creatinine Clear Calc Drug Dose 183.8 ml/min Estimated GFR () 133.7 Estimated GFR (Non- 115.4 BUN/Creatinine Ratio 18.4 (10-20) Calcium Level 8.5 mg/dl (8.5-10.1) Total Bilirubin 0.6 mg/dl (0.2-1) Direct Bilirubin 0.1 mg/dl (0-0.2) Aspartate Amino Transf (AST/SGOT) 35 U/L (15-37) Alanine Aminotransferase (ALT/SGPT) 53 U/L (12-78) Alkaline Phosphatase 72 U/L (45-117) Total Protein 7.3 gm/dl (6.4-8.2) Albumin 3.3 gm/dl (3.4-5.0) Urine Color YELLOW Urine Appearance CLEAR (CLEAR) Urine pH 5.5 (4.5-7.5) Urine Specific [place] 1.022 (1.000-1.030) Urine Protein NEG (NEG) Urine Glucose (UA) NEG (NEG) Urine Ketones NEG (NEG) Urine Occult Blood NEG (NEG) Urine Nitrite NEG (NEG) Urine Bilirubin NEG (NEG) Urine Urobilinogen NEG (NEG) Urine Leukocyte Esterase NEG (NEG) Laboratory results per my review. Medications Administered Medications (Trade) Dose Ordered Sig/Davin Route Start Time Stop Time Status Last Admin Dose Admin Sodium Chloride 1,000 ml @ 999 mls/hr Q1H1M STAT IV 01/01/18 10:44 01/01/18 11:44 DC 01/01/18 11:04 999 MLS/HR Ondansetron HCl (Zofran Inj) 4 mg NOW STAT IV 01/01/18 10:44 01/01/18 10:46 DC 01/01/18 11:03 4 MG ED Course 1041: The patient was evaluated in room A4. A complete history and physical examination were performed. 1044: Zofran 4mg IV, NSS 1,000 ml @ 999 mls/hr IV 1220: Upon reevaluation, the patient is doing well. I discussed the results and treatment plan with her. She verbalized agreement of the treatment plan. She was discharged home. Medical Decision Differential diagnosis: Etiologies such as appendicitis, diverticulitis, PUD, biliary pathology, UTI, pancreatitis, obstruction, mesenteric ischemia, aortic pathology, infections, inflammatory bowel disease, renal colic, as well as others were entertained. Nursing notes reviewed. Patient's previous electronic medical records are reviewed. The patient is a 37-year-old female who presented to the emergency department for an evaluation of abdominal pain and constipation. The patient's physical exam was not consistent with an acute surgical abdomen. The patient was treated with IV fluids in the emergency department. I discussed the patient's laboratory and radiographic studies with her. She was found to have significant constipation on radiographic studies. This does not appear to be consistent with fecal impaction however. I recommended that she continue all medications as prescribed and refer for many strong pain medication as this may make her situation worse. She was also encouraged to follow-up with her primary care physician as well as her gastroenterology follow-up as soon as possible. Otherwise she was encouraged to return to the emergency department immediately symptoms change worsen or the need arises. Medication Reconcilliation Current Medication List: was personally reviewed by me Blood Pressure Screening Patient's blood pressure: Elevated blood pressure Blood pressure disposition: Elevated BP felt to be situational Impression Primary Impression: Abdominal pain Additional Impressions: Constipation GI bleeding Scribe Attestation The scribe's documentation has been prepared under my direction and personally reviewed by me in its entirety. I confirm that the note above accurately reflects all work, treatment, procedures, and medical decision making performed by me. Departure Information Dispostion Home / Self-Care Prescriptions Polyethylene Glycol 3350 (MIRALAX) 1 Pow Pow 17 GM PO DAILY, #527 GM Prov: Tano Magallon, 01/01/18 Referrals Andrez Márquez M.D. (PCP) Forms HOME CARE DOCUMENTATION FORM, IMPORTANT VISIT INFORMATION Patient Instructions Constipation, My [facility] Additional Instructions Continue all medications as prescribed. Drink plenty of clear liquids. Avoid any strong pain medications but continue to use Tylenol as directed for pain. Follow-up with the nursing director as soon as possible. Problem Qualifiers Primary Impression: Abdominal pain Abdominal location: generalized Qualified Codes: R10.84 - Generalized abdominal pain Additional Impressions: Constipation Constipation type: unspecified constipation type Qualified Codes: K59.00 - Constipation, unspecified GI bleeding GI bleed type/associated pathology: unspecified gastrointestinal hemorrhage type Qualified Codes: K92.2 - Gastrointestinal hemorrhage, unspecified
[2018-01-01] MEDS ORDERED: POLY335019 PO (12:25)
[2018-01-01 14:03] VITALS: BP 140/97; PULSE 72; O2SAT 99
== END 2018-01-01 14:05 | disposition home or self-care (01) ==
LOC: C.EDB 10:05 → C.EDA 14:05
DX: K59.00 Constipation, unspecified (principal); K92.2 Gastrointestinal hemorrhage, unspecified; Z90.710 Acquired absence of both cervix and uterus; F17.210 Nicotine dependence, cigarettes, uncomplicated; Z79.899 Other long term (current) drug therapy; Z88.6 Allergy status to analgesic agent; Z88.5 Allergy status to narcotic agent; Z91.013 Allergy to seafood

== ENCOUNTER 2020-01-10 21:58 | Observation (INO) ==
[2020-01-10] MEDS ORDERED: KETOROLAC 30 MG/ML VIAL IV STA (22:26)
--- NOTE | 2020-01-10 22:26 | Emergency Department Note ---
History of Present Illness General Chief complaint: Back Injury/Pain Stated complaint: LOWER BACK PAIN Time Seen by Provider: 01/10/20 22:16 History of Present Illness Maximum Pain Intensity: 4 This is a 39-year-old female that presents to the emergency department via ambulance with complaints of "low back pain". The patient states that this past Thursday evening she was sleeping the floor with a broom and then developed some soreness in her low back. She states that she applied a heating pad to the area but could not stand up from a chair noting the amount of back pain she was expe riencing. She states that she tried placing Biofreeze on the area and then Thursday had trouble moving secondary to the amount of pain. She describes a spasming/cramping sensation. Now it is a sharp and stabbing sensation. It is better with some stretches at times but worse with movement. She tried a TENS unit this past Thursday for 60 minutes x 3 episodes with minimal relief. She then tried 2 episodes on Thursday and then this morning. She had Motrin at 11 AM today. She notes she was doing okay but now cannot walk secondary to the amount of severe pain in the low back. She notes that it is just above the sacral region in the low back. It does not radiate. Earlier on in the week she did have some discomfort that seem to make it difficult for her to move the left leg but now that has resolved. She denies any lower extremity weakness, bowel bladder incontinence, numbness or tingling in the genital region. No trauma, injury, fevers, chills, chest pain, shortness of breath or abdominal pain. She did try muscle relaxers earlier today with minimal relief. She denies chance of noting a history of hysterectomy. Home Medications Home Medications Medication Instructions Recorded Confirmed Type ibuprofen 800 mg PO Q8H PRN 01/10/20 01/10/20 History Allergies Allergy/AdvReac Type Severity Reaction Status Date / Time aspirin AdvReac Intermediate Gastrointestinal Verified 01/10/20 22:39 Upset codeine AdvReac Intermediate Gastrointestinal Verified 01/10/20 22:39 Upset Fish AdvReac Intermediate HIVES/VOMIT/TURN Uncoded 01/10/20 22:39 RED Past Med/Surg History Medical History Asthma (Chronic) IBS (irritable bowel syndrome) (Inactive) Surgical History Hx of hysterectomy Family History Other Cancer Gallbladder disease Heart disease Hypertension Kidney stones Social History Preferred Language: Burmese Current Living Situation: Family Feels Safe at Home: Yes Smoking Status: Current some day smoker Hx Alcohol Use: Yes Review of Systems A total of 10 systems reviewed and were otherwise negative Physical Exam Vital Signs Vital Signs - 24 hr 01/10/20 22:10 01/10/20 23:45 01/11/20 01:08 Temperature 36.9 C Temperature Source Oral Pulse Rate 95 H Pulse Rate [Apical] 85 81 Respiratory Rate 26 H 21 23 Respiratory Effort / Characteristics Non-Labored Spontaneous Non-Labored Spontaneous Respiratory Depth Shallow Normal Normal Respiratory Pattern Tachypnea Blood Pressure 157/89 H Blood Pressure [Right Arm] 135/83 121/88 Blood Pressure Mean 111 Blood Pressure Mean [Right Arm] 100 99 Pulse Oximetry 97 97 98 Oxygen Delivery Method Room Air Room Air Room Air Sepsis Recent Fever Within 48 Hours No Sepsis Action Taken by Nursing No Action Required 01/11/20 02:03 01/11/20 02:59 Temperature Temperature Source Pulse Rate Pulse Rate [Apical] 73 67 Respiratory Rate 20 20 Respiratory Effort / Characteristics Non-Labored Spontaneous Non-Labored Spontaneous Respiratory Depth Normal Normal Respiratory Pattern Blood Pressure Blood Pressure [Right Arm] 140/94 152/78 H Blood Pressure Mean Blood Pressure Mean [Right Arm] 109 102 Pulse Oximetry 97 93 Oxygen Delivery Method Room Air Room Air Sepsis Recent Fever Within 48 Hours Sepsis Action Taken by Nursing VITAL SIGNS - Vital signs and nursing notes were reviewed. Hypertensive, tachycardic and tachypneic. GENERAL -39-year-old female appearing her stated age who is in no acute distress but is lying completely supine in the examination bed and anytime she goes to move she appears to be experiencing pain in the low back. Communicates well with provider and answers questions appropriately. SKIN - Without rashes. No meningeal or petechial rash. HEAD - NC/AT. EYES - PERRL with EOMI bilaterally. Sclera anicteric. EARS - No deformities of external structures noted on gross examination bilaterally. NOSE - Midline and without cyanosis. No epistaxis or purulent drainage noted. MOUTH/OROPHARYNX - Without perioral cyanosis. NECK - Neck with FROM. No nuchal rigidity. LUNGS - Chest wall symmetric without accessory muscle use, intercostals retractions, or central cyanosis. Normal vesicular breath sounds CTA B/L. No wh eezes, rales, or rhonchi appreciated. CARDIAC - RRR with S1/S2. No murmur, rubs, or gallops appreciated. ABDOMEN - Abdominal contour normal without pulsations or visible masses. BS normoactive all four quadrants. No tenderness, palpable masses, hepatosplenomegaly, or ascites noted. EXTREMITIES - No clubbing or peripheral cyanosis. No pretibial edema present. +5/5 strength noted in UE/LE bilaterally. MUSCULOSKELETAL: The patient is unable to roll on the examination bed to better examine the spine secondary to pain. NEUROLOGIC - Cranial nerves II through XII grossly intact. Sensory intact to light touch throughout. PSYCH - A&Ox3 and cooperates fully with examiner. Pt is very pleasant and i nteracts well with examiner. Course Administered Medications Acetaminophen (Tylenol) 650 mg PO Q4H PRN PRN Reason: pain/fever Stop: 02/10/20 01:49 Last Admin: 01/11/20 02:58 Dose: 650 mg Documented by: [id number] Discontinued Medications Dexamethasone Sodium Phosphate (Decadron Pf) 10 mg IV NOW ONE Stop: 01/11/20 00:49 Last Admin: 01/11/20 01:01 Dose: 10 mg Documented by: [id number] Enoxaparin Sodium (Lovenox) Confirm Administered Dose 40 mg .ROUTE .STK-MED ONE Stop: 01/11/20 02:12 Last Admin: 01/11/20 02:53 Dose: Not Given Documented by: [id number] Ketorolac Tromethamine (Toradol) 30 mg IV NOW STA Stop: 01/10/20 22:27 Last Admin: 01/10/20 22:49 Dose: 30 mg Documented by: [id number] Lorazepam (Ativan) 1 mg SL NOW STA Stop: 01/11/20 00:58 Last Admin: 01/11/20 01:00 Dose: 1 mg Documented by: [id number] Morphine Sulfate (Morphine Sulfate) 4 mg IV NOW STA Stop: 01/10/20 23:42 Last Admin: 01/10/20 23:51 Dose: 4 mg Documented by: [id number] Morphine Sulfate (Morphine Sulfate) 4 mg IV NOW STA Stop: 01/11/20 00:07 Last Admin: 01/11/20 00:15 Dose: 4 mg Documented by: [id number] Ondansetron HCl (Zofran) 4 mg IV NOW STA Stop: 01/10/20 23:42 Last Admin: 01/10/20 23:48 Dose: 4 mg Documented by: [id number] Medical Decision Making Laboratory Data Result diagrams: 01/10/20 22:53 01/10/20 22:53 Lab Results 01/10/20 01/10/20 01/11/20 Range/Units 22:53 22:53 00:55 WBC 7.97 (4.8-10.8) K/uL RBC 4.75 (4.2-5.4) M/uL Hgb 14.2 (12.0-16.0) g/dL Hct 40.8 (37-47) % MCV 85.9 (80-100) fL MCH 29.9 (25-34) pg MCHC 34.8 (32-36) g/dL RDW Std Deviation 39.5 (36.4-46.3) fL RDW Coeff of Marjan 12.6 (11.5-14.5) % Plt Count 174 (130-400) K/uL MPV 9.7 (7.4-10.4) fL Immature Gran % (Auto) 0.3 % Neut % (Auto) 64.4 % Lymph % (Auto) 25.7 % [place] % (Auto) 7.0 % Eos % (Auto) 2.3 % Baso % (Auto) 0.3 % Immature Gran # (Auto) 0.02 (0.00-0.02) K/uL Neut # (Auto) 5.14 (1.4-6.5) K/uL Lymph # (Auto) 2.05 (1.2-3.4) K/uL [place] # (Auto) 0.56 (0.11-0.59) K/uL Eos # (Auto) 0.18 (0-0.5) K/uL Baso # (Auto) 0.02 (0-0.2) K/uL Sodium 139 (136-145) mmol/L Potassium 3.7 (3.5-5.1) mmol/L Chloride 106 (98-107) mmol/L Carbon Dioxide 26 (21-32) mmol/L Anion Gap 7.0 (3-11) BUN 8 (7-18) mg/dl Creatinine 0.61 (0.6-1.2) mg/dl Est Cr Clr Drug Dosing 193.2 ml/min Est GFR ( Amer) 133.3 Est GFR (Non-Af Amer) 115.0 BUN/Creatinine Ratio 13.9 (10-20) Glucose 175 H (70-99) mg/dl Calcium 8.4 L (8.5-10.1) mg/dl Total Bilirubin 0.3 (0.2-1) mg/dl AST 67 H (15-37) U/L ALT 111 H (12-78) U/L Alkaline Phosphatase 82 (45-117) U/L Total Protein 6.8 (6.4-8.2) gm/dl Albumin 3.0 L (3.4-5.0) gm/dl Globulin 3.8 (2.5-4.0) gm/dl Albumin/Globulin Ratio 0.8 L (0.9-2) Urine Color Yellow Urine Appearance Clear (Clear) Urine pH 6.0 (4.5-7.5) Ur Specific [place] 1.012 (1.000-1.030) Urine Protein Negative (Negative) Urine Glucose (UA) Negative (Negative) Urine Ketones Negative (Negative) Urine Blood Negative (Negative) Urine Nitrite Negative (Negative) Urine Bilirubin Negative (Negative) Urine Urobilinogen Negative (Negative) Ur Leukocyte Esterase Negative (Negative) Imaging Data Radiologist's Impression: MRI L SPINE : At L3-4 there is a left far lateral disc herniation measuring 4 mm. No spinal stenosis. There is moderate left neural foraminal narrowing. The disc herniation is in the region of the left L3 exiting nerve root. At L4-5 there is 2-3 mm T2 hyperintensity along the left side of the disc bulge consistent with disc annular tear. No spinal stenosis is identified. There is mild bilateral neural foraminal narrowing. At L5-S1 there is 3 mm disc bulge also with T2 hyperintensity and on the posterior disc margin consistent with disc annular tear. No spinal stenosis is seen. There is mild bilateral neural foraminal narrowing mostly in the right. The remaining lumbar levels appear within normal limits. Radiologist: Jay Schaffer MD Study ready at 23:53 and initial results transmitted at 00:07 [facility] Narrative Patient was seen and evaluated as above in room C12. Review was performed of nursing notes and vital signs. After obtaining a thorough history and physical examination the above work up was performed. She presents to us today with low back pain. She presents to us today via ambulance. She is nontoxic on exam but cannot get out of the bed as she appears to be experiencing a tremendous amount of low back pain with any attempt at movement that involves movement of the back. She does not have any fever. No infectious symptoms. IV access was established. Labs were drawn. CBC reveals no leukocytosis or anemia. No emergent metabolic disturbance. There is hyperglycemia at 175 with mild LFT elevation. Urinalysis does not suggest infection. I did not order UPT as the patient noted that she was status post hysterectomy. MRI of the L-spine was obtained as it was felt that even though the patient was given Toradol she still was not able to move secondary to back pain. The MRI results are as above. The patient does have several disc bulges/herniations which likely are contributing to her discomfort at this time. There is no other finding here today to suggest other cause. No clinical examination finding or MRI finding to suggest the patient requires emergent surgical intervention. Patient was given several other analgesics here without relief. I did order Decadron once the MRI resulted as well. She was feeling somewhat anxious and Ativan was also ordered. Ambulatory trial was ordered and unfortunately patient was not able to get out of the bed on her own. This was all secondary to back pain. No N/V deficit on examination. No evidence of cauda equina syndrome. Benefit versus risk of inpatient versus outpatient management discussed and through shared decision making we both agreed that going home tonight would not be in her best interest. I do believe the patient would benefit from inpatient management as at this time I do not believe that she can ambulate unassisted safely and I am concerned about her performing ADLs. She will be admitted for further evaluation and management. Please refer to further documentation regarding her stay. Case was discussed with the attending physician. In the evaluation and treatment of this patient the following differential diagnosis entertained: Fracture, dislocation, subluxation, cauda equina syndrome, AAA, diverticulitis, appendicitis, torsion, osteomyelitis, piriformis syndrome, strain, sprain, among others. Impression & Plan Low back pain, Ambulatory dysfunction, Lumbar herniated disc Discharge Plan Visit Data Chief Complaint: Back Injury/Pain Stated Complaint: LOWER BACK PAIN ED Provider: Abdi Cornejo ED Midlevel Provider: Noé Maldonado Discharge Problem: Low back pain, Ambulatory dysfunction, Lumbar herniated disc Forms Stand Alone Forms: My [facility] L8 [employer] Prescriptions Prescriptions: No Action ibuprofen 800 mg Tablet 800 mg PO Q8H PRN (Reason: Pain) RF: 0
[2020-01-10 23:01] LABS: Basophils # (auto) 0.02 K/uL (0-0.2); Basophils % (auto) 0.3 %; Eosinophils # (auto) 0.18 K/uL (0-0.5); Eosinophils % (auto) 2.3 %; Hematocrit (blood only) 40.8 % (37-47); Hemoglobin 14.2 g/dL (12.0-16.0); Immature Granulocytes # (auto) 0.02 K/uL (0.00-0.02); Immature Granulocytes % (auto) 0.3 %; Lymphocytes # (auto) 2.05 K/uL (1.2-3.4); Lymphocytes % (auto) 25.7 %; Mean Corpuscular Hemoglobin 29.9 pg (25-34); Mean Corpuscular Hgb Conc 34.8 g/dL (32-36); Mean Corpuscular Volume 85.9 fL (80-100); Mean Platelet Volume 9.7 fL (7.4-10.4); Monocytes # (auto) 0.56 K/uL (0.11-0.59); Neutrophils # (auto) 5.14 K/uL (1.4-6.5); Neutrophils % (auto) 64.4 %; Platelet Count 174 K/uL (130-400); RDW Coefficient of Variation 12.6 % (11.5-14.5); RDW Standard Deviation 39.5 fL (36.4-46.3); Red Blood Count 4.75 M/uL (4.2-5.4); White Blood Count 7.97 K/uL (4.8-10.8)
[2020-01-10 23:18] LABS: BUN Creatinine Ratio 13.9 (10-20); Calcium 8.4 mg/dl (8.5-10.1); Creatinine Clr Calc Pharmacy 193.2 ml/min; Est GFR (African American) 133.3; Potassium 3.7 mmol/L (3.5-5.1)
[2020-01-10 23:21] LABS: Albumin Globulin Ratio 0.8 (0.9-2); Bilirubin,Total 0.3 mg/dl (0.2-1); Globulin 3.8 gm/dl (2.5-4.0); Total Protein 6.8 gm/dl (6.4-8.2)
[2020-01-10] MEDS ORDERED: ONDANSETRON INJ 2 MG/ML 2 ML VIAL IV STA (23:41)
[2020-01-10] MEDS ORDERED: MoRPHine SULFATE 4 MG/ML 1 ML CARP\\VIAL IV STA (23:41)
[2020-01-11] MEDS ORDERED: MoRPHine SULFATE 4 MG/ML 1 ML CARP\\VIAL IV STA (00:06)
[2020-01-11] MEDS ORDERED: DEXAMETHASONE **PF** INJ 10 MG/ML VIAL IV ONE (00:48)
[2020-01-11] MEDS ORDERED: LORazepam 1 MG TAB SL STA (00:57)
[2020-01-11 01:04] LABS: Appearance Urine Clear (Clear); Bilirubin Urine Negative (Negative); Blood Urine Negative (Negative); Color Urine Yellow; Glucose Urine UA Negative (Negative); Ketones Urine Negative (Negative); Leukocyte Esterase Urine Negative (Negative); Nitrite Urine Negative (Negative); Protein Urine Negative (Negative); Specific Gravity Urine 1.012 (1.000-1.030); Urobilinogen Urine Negative (Negative)
[2020-01-11] MEDS ORDERED: ONDANSETRON INJ 2 MG/ML 2 ML VIAL IV PRN (01:50)
[2020-01-11] MEDS ORDERED: ACETAMINOPHEN 325 MG TAB PO PRN (01:50)
[2020-01-11] MEDS ORDERED: POLYETHYLENE (MIRALAX) 17 GM PACK PO PRN (01:50)
[2020-01-11] MEDS ORDERED: KETOROLAC 30 MG/ML VIAL IV PRN (01:55)
[2020-01-11] MEDS ORDERED: MoRPHine SULFATE 4 MG/ML 1 ML CARP\\VIAL IV PRN (01:58)
[2020-01-11] MEDS ORDERED: ENOXAPARIN INJ 40 MG/0.4 ML SYR ONE (02:11)
--- NOTE | 2020-01-11 03:05 | History & Physical Report ---
Date of Service January 11, 2020 Assessment & Plan (1) Low back pain: Low Back Pain Evidence of disc herniation of lumbar spine MRI negative. Patient with difficulty ambulating secondary to pain, red flag symptoms negative, no radicular pain no neuro deficits or weakness COnservative management likely best option in this morbidly obese patient Received 10 mg decadron, will continue with 4 mg decadron q6h moving forward tylenol, toradol, and morphine for pain Pain management consulted for possible injection therapy. Elevated LFT's Patient asymptomatic in this regard but elevated AST and ALT Patient with risk factors for NAFLD/BROOKS Hepatitis workup appropriate in outaptient setting Elevated blood sugar Patient with elevated blood sugar on admission, will check A1C may be diabetic/prediabetic Would fit with possible NAFLD If needed can add insulin coverage while in hospital F/E/N: DMII diet DVT PPx: Lovenox 40 mg Dispo: Admit to med surg for adequate pain control as patient is unable to ambulate at present secondary to pain. (2) Ambulatory dysfunction: (3) Lumbar herniated disc: History of Present Illness Chief Complaint: Back Pain Primary Care Provider: Andrez Willi Silva is a 39 yo woman with a past medical history of thyroid cancer and morbid obesity who is here for back pain that started late last week. On Thursday she was sweeping her floors and she noticed that she had a mildly sore back. 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 THe pain is about 3 cm on either side of her spine R=L. She tried some exercises that she got from her chiropractor and used a TENS unit on Thursday the pain continued to get worse. Last night she took a muscle relaxer used the TENS unit and thought she was feeling better, but when she got up to go to the bathroom she found herself limited by pain and unable to get up without a lot of assistance. On arrival to ED she was able to finally urinate without any dysfunction, no saddle area numbness, no radiulopathic or radiating pain no focal weakness. Patients vitals wnl, labwork significant for elevated transaminases [id number]. MRI showing At L3-4 there is a left far lateral disc herniation measuring 4 mm. No spinal stenosis. There is moderate left neural foraminal narrowing. The disc herniation is in the region of the left L3 exiting nerve root. At L4-5 there is 2-3 mm T2 hyperintensity along the left side of the disc bulge consistent with disc annular tear. No spinal stenosis is identified. There is mild bilateral neural foraminal narrowing. At L5-S1 there is 3 mm disc bulge also with T2 hyperintensity and on the posterior disc margin consistent with disc annular tear. No spinal stenosis is seen. There is mild bilateral neural foraminal narrowing mostly in the right. The remaining lumbar levels appear within normal limits. with GIven 10 mg de cadron and toradol in ED as well as 4 mg morphine x2. Patient appears to be doing much better but still unable to ambulate secondary to pain. Patient has tried Stretching TENS unit, ibuprofen and muscle relaxer, all of which are transiently helpful but symptoms continuing to get worse overall. She is allergic to aspirin and seafood, she has a history of thyroid cancer that has been removed. She takes no medication regularly. Allergies Allergy/AdvReac Type Severity Reaction Status Date / Time aspirin AdvReac Intermediate Gastrointestinal Verified 01/10/20 22:39 Upset codeine AdvReac Intermediate Gastrointestinal Verified 01/10/20 22:39 Upset Fish AdvReac Intermediate HIVES/VOMIT/TURN Uncoded 01/10/20 22:39 RED Home Medications Home Medications Medication Instructions Recorded Confirmed Type ibuprofen 800 mg PO Q8H PRN 01/10/20 01/10/20 History baclofen 10 mg PO BID PRN #30 tab 01/11/20 Rx dexamethasone [Decadron] See Rx Instructions .ROUTE 01/11/20 Rx .COMPLEX #30 tab gabapentin 300 mg PO BID 30 Days #60 cap 01/11/20 Rx hydrocodone-acetaminophen [[place]] 1 tab PO Q8H PRN #14 tab 01/11/20 Rx Past Med/Surg History Medical History (Updated 01/11/20 @ 10:33 by Joyce Fay DO) Asthma (Chronic) IBS (irritable bowel syndrome) (Inactive) Morbid obesity Surgical History Hx of hysterectomy Family History Other Cancer Gallbladder disease Heart disease Hypertension Kidney stones Social History Preferred Language: Lithuanian Communication Ability: Effective 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 Beliefs That Will Affect Care: None Current Living Situation: Family Current Living Situation Comment: two children Other Information That Helps Us Care for You: No Feels Safe at Home: Yes Safety Concerns: Feels Safe At This Time Smoking Status: Current some day smoker Tobacco Type: cigarettes ; Do You Dip or Chew Tobacco: No ; Second Hand Exposure: No ; Tobacco Cessation Education Requested by Patient: No Hx Alcohol Use: Yes Hx Substance Use: No Review of Systems Constitutional: no fever, no chills, no fatigue and no weakness Eyes: no problem reported Ear, Nose, Mouth, Throat: no problem reported Respiratory: no cough, no dyspnea and no wheezing Cardiovascular: no chest pain, no dyspnea, no palpitations, no lightheadedness, no edema and no calf pain Gastrointestinal: no abdominal pain, no nausea, no vomiting, no change in bowel habits, no fecal incontinence, no blood in stools and no melena Genitourinary: no dysuria, no urinary frequency and no urinary incontinence Physical Exam Physical Exam: Constitutional: Clearly uncomfortable, obese 39 year old woman appearing stated age lying stiffly in bed with knees bent Eyes: NAD NEck: Supple no c spine tenderness Respiratory: no incresaed work of breathing or accessory muscle use, ln sounds vesicular throughout Cardiovascular: Heart sounds dual, no murmurs, rubs skips or gallops, no lower limb edema GI: Abdomen soft, nontender,n o masses palpable SKin: no rashes, no skin breakdown Neuro: Peripheral strength and sensation intact upper and lower extremity no focal weakness , reflexes normal, MSK: Patient with pain on twisting of trunk, straight leg raise causing pain bilaterally, no radicular pain elicited Results & Data Results & Data ([facility]) Vital Signs (Past 12 Hours) Vital Signs Temp Pulse Pulse Resp BP BP Pulse Ox 01/11/20 01:08 81 23 121/88 98 01/10/20 23:45 85 21 135/83 97 01/10/20 22:10 36.9 C 95 H 26 H 157/89 H 97 Supervising Physician Co-Signing Physician Notes Attending addendum: I have physically seen this patient, have supervised the medical residents activities, and agree with the H&P unless as otherwise noted. Assessment and Plan: Intractable low back pain/left 4 mm L3-4 disc herniation/left 2 to 3 mm L4-5 disc annular tear/left L3 nerve root irritation- Inability to ambulate. Received Decadron 10 mg IV in ED, will continue 4 mg IV every 6 hours Tylenol 650 mg p.o. every 6 hours PRN mild pain or temperature. Morphine sulfate 4 mg IV every 4 hours as needed severe pain Consult pain management. Elevated LFTs- Has risk factors for NAFLD/BROOKS. Can undergo further work-up in outpatient setting, including imaging, and additional lab work as needed. Hyperglycemia- Check hemoglobin A1c Remainder of orders and notations as noted. Resident Activity Tracking Resident Involvement: Resident Care Provided Care Provided: Adult [facility]
[2020-01-11] MEDS ORDERED: DEXAMETHASONE SOD INJ 4 MG/ML VIAL IV SCH (06:00)
[2020-01-11] MEDS ORDERED: DEXAMETHASONE SOD PHOSPHATE 4 MG in SYRINGE 0 ML IV SCH (06:00)
--- NOTE | 2020-01-11 06:48 | Magnetic Resonance Report ---
MR lumbar spine wo con CLINICAL HISTORY: Severe low back pain, and inability to ambulate. TECHNIQUE: Sagittal and axial T1, T2 and STIR images were obtained. COMPARISON STUDY: No previous studies for comparison. OBSERVATIONS: There is mild distention of the urinary bladder. The vertebral bodies and posterior elements appear intact. There is no abnormal bony signal present t o suggest a marrow replacement process. L1-2: No disc protrusions or extrusions. No evidence of spinal canal or neural foraminal compromise. L2-3: No disc protrusions or extrusions. No evidence of spinal canal or neural foraminal compromise. L3-4: There is a mild circumferential disc bulge. There is a small left lateral and foraminal disc pr otrusion with minor left-sided foraminal narrowing. There is no significant spinal or foraminal steno sis. L4-5: There is an annular fissure and tiny broad-based central disc protrusion. This has minimal impa ct on the anterior thecal sac. There is no significant foraminal narrowing L5-S1: There is an annular fissure and tiny broad-based central disc protrusion. There is no signific ant spinal or foraminal stenosis. There is mild facet joint arthropathy. The conus medullaris and cauda equina appear normal. IMPRESSION: 1. Small left lateral and foraminal disc protrusion at the L3-4 level with minor left-sided foraminal narrowing 2. Annular fissures and tiny broad-based central disc protrusions at the L4-5 and L5-S1 levels. ACT 112: Negative or not required by law. Electronically signed by: Vito Duckworth M.D. 01/11/2020 6:46 AM
[2020-01-11 07:07] LABS: Prothrombin Time 10.1 Seconds (9.0-12.0)
[2020-01-11 07:20] LABS: Estimated Average Glucose 160 mg/dl; Hemoglobin A1C 7.2 % (4.5-5.6)
[2020-01-11 07:36] LABS: Chol HDL Ratio 6; Cholesterol 259 mg/dl (0-200); HDL Cholesterol 45 mg/dl; LDL Cholesterol Calculated 188 mg/dl; Triglycerides 130 mg/dl (0-150); VLDL Cholesterol 26 mg/dl
[2020-01-11] MEDS ORDERED: HYDROCODONE/ACETAMOPHEN 5/325MG TAB PO PRN (07:46)
[2020-01-11] MEDS ORDERED: BACLOFEN 10 MG TAB PO PRN (07:46)
[2020-01-11] MEDS ORDERED: GABAPENTIN 300 MG CAP PO SCH (09:00)
[2020-01-11] MEDS ORDERED: ENOXAPARIN INJ 40 MG/0.4 ML SYR SQ SCH (09:00)
--- NOTE | 2020-01-11 10:37 | Pain Management Consultation ---
Date of Consultation January 11, 2020 Assessment & Plan (1) Lumbar herniated disc: 1. Recommend initation of gabapentin 300mg po bid, baclofen 10mg po bid prn spasm, norco 5/325mg 1 po q4h prn pain. Discussed r/b and orders written 2. PT consult either outpt or inpt. Orders written for inpt, but should not hold d/c if agreed upon by primary team 3. May f/u with pain mgt as oupt. 4. No surgical red flags at this time, but pt advised of NSY emergencies. Pt acknowledges understanding. 5. Consider SITA as outpt if fails conservative mgt. Did d/w pt wt loss as way to improve overall pain in future. 6. Thank you for this consultation. Please call with any questions. Present on Admission?: Yes (2) Low back pain: (3) Ambulatory dysfunction: (4) Morbid obesity: History of Present Illness Attending Physician: Rob Rojas MD History of Present Illness 39yoF who had acute onset of LBP without radiation on 01/06/20 mitigated with TENS/rest/NSAIDS until late evening 01/10/20 after standing up to use restroom. She felt unable to ambulate and presented to [facility] ER. She denies B/B incontinence, foot drop, fever/chills/night sweats. She reports similar occurence of LBP 12 yr prior which resolved with manager critical care and stretches. She denies trauma as etiology of pain. Pain is 99% axial from L3-5 with only 1% left-sided radicular symptoms in the L3 dermatome. She notes pain ranges between 4 and 7 out of 10. She reports significant improvement in pain with IV steroid utilization. She feels more com fortable ambulating to and from the bathroom as of this morning. She characterizes her pain as cramping, " it is like I have back labor contractions." She declines consideration of surgical evaluation at this time. She opts for conservative measures. She questions if she might be able to go home this morning since she is feeling significantly better. Pain Assessment Full Body Front + Back: 1. [facility] Combined Pain Scale: 4-Mild to Mod - Interrupts ADLs. Decrease in job performance Pain scale - at its best (0-10): 4 Pain scale - at its worst (0-10): 7 Allergies Allergy/AdvReac Type Severity Reaction Status Date / Time aspirin AdvReac Intermediate Gastrointestinal Verified 01/10/20 22:39 Upset codeine AdvReac Intermediate Gastrointestinal Verified 01/10/20 22:39 Upset Fish AdvReac Intermediate HIVES/VOMIT/TURN Uncoded 01/10/20 22:39 RED Home Medications Home Medications Medication Instructions Recorded Confirmed Type ibuprofen 800 mg PO Q8H PRN 01/10/20 01/10/20 History baclofen 10 mg PO BID PRN #30 tab 01/11/20 Rx dexamethasone [Decadron] See Rx Instructions .ROUTE 01/11/20 Rx .COMPLEX #30 tab gabapentin 300 mg PO BID 30 Days #60 cap 01/11/20 Rx hydrocodone-acetaminophen [[place]] 1 tab PO Q8H PRN #14 tab 01/11/20 Rx Pain History Pain Intensity Pain scale - at its best (0-10): 4 Pain scale - at its worst (0-10): 7 Patient History Medical History (Updated 01/11/20 @ 10:33 by Joyce Fay DO) Asthma (Chronic) IBS (irritable bowel syndrome) (Inactive) Morbid obesity Surgical History Hx of hysterectomy Family History Other Cancer Gallbladder disease Heart disease Hypertension Kidney stones Social History Preferred Language: Icelandic Communication Ability: Effective Certified Medical Assistant Required: No Beliefs That Will Affect Care: None Current Living Situation: Family Current Living Situation Comment: two children Other Information That Helps Us Care for You: No Feels Safe at Home: Yes Safety Concerns: Feels Safe At This Time Smoking Status: Current some day smoker Tobacco Type: cigarettes ; Do You Dip or Chew Tobacco: No ; Second Hand Exposure: No ; Tobacco Cessation Education Requested by Patient: No Hx Alcohol Use: Yes Hx Substance Use: No Physical Exam Physical Exam: Constitutional: Well-developed, well-nourished, healthy- appearing, morbidly obese female Psych: Awake, alert, and oriented 3 with normal affect and mood. Recent memory appears grossly intact Eyes: Pupils are equally round and reactive to light with normal size pupils, eyelids appear normal Ear, nose, mouth, and throat: Moist nasal and oral membranes, lips and tongues appear normal, no external ear abnormalities are noted Neck: The trachea is midline without deviation and no thyromegaly is noted Respiratory: Normal respiratory effort without distress, no audible wheezes or rhonchi CV: Normal S1 and S2 Chest: Deferred GI/abdomen: Protuberant soft Musculoskeletal: Head is normocephalic and atraumatic, gait not observed but is able to move from a lying to a seated position with moderate minimal to mild difficulty Cervical: Lordotic curve: Normal Range of motion is normal with extension, flexion, side-bending, rotation Strength: Strength is equal bilaterally with 5 out of 5 strength in all planes Sensation of upper extremities: Intact bilaterally Thoracic: Kyphotic curve: Normal Range of motion is normal with extension, flexion, side-bending, rotation Lumbar: Lordotic curve: Slightly increased lumbar lordosis Range of motion is decreased in all planes secondary to body habitus Tenderness: Moderately tender over the axial midline from L3-5 Facet provocation: Marginally positive bilaterally Straight leg raise: Negative bilaterally, patient notes a " pulling" sensation with Achilles stretch on the left but no true radicular symptoms Step-off injuries: None Strength: Strength is equal bilaterally with 5 out of 5 strength in all planes with the exception of left-sided quad with 4+ out of 5 strength Sensation of lower extremities: Intact bilaterally Deep tendon reflexes: Rated at 2+ in bilateral L4 and S1 Myofascial spasm: Mild appreciable spasm over lumbar paravertebral spinous musculature. No discrete trigger points noted Greater trochanters: Nontender bilaterally Sacroiliac joints: Nontender bilaterally Pathologic reflexes noted: None Skin: No rashes, lesions, ulcers, or induration noted Neuro: No nystagmus noted, the tongue is midline, the patient is able to rotate their head bilaterally : Deferred Results Laboratory Review Laboratory results: personally reviewed by me and no pertinent findings Diagnostic Review MRI: non enhanced, reports reviewed, images reviewed and findings discussed with patient MRI Findings: left lateral L3-4 small herniation on MRI dated 01/10/20
--- NOTE | 2020-01-11 11:26 | Discharge Summary ---
Date of Service January 11, 2020 Admission HPI Per Admitting Provider Lorie Silva is a 39 yo woman with a past medical history of thyroid cancer and morbid obesity who is here for back pain that started late last week. On Thursday she was sweeping her floors and she noticed that she had a mildly sore back. 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 THe pain is about 3 cm on either side of her spine R=L. She tried some exercises that she got from her chiropractor and used a TENS unit on Thursday the pain continued to get worse. Last night she took a muscle relaxer used the TENS unit and thought she was feeling better, but when she got up to go to the bathroom she found herself limited by pain and unable to get up without a lot of assistance. On arrival to ED she was able to finally urinate without any dysfunction, no saddle area numbness, no radiulopathic or radiating pain no focal weakness. Patients vitals wnl, labwork significant for elevated transaminases [id number]. MRI showing At L3-4 there is a left far lateral disc herniation measuring 4 mm. No spinal stenosis. There is moderate left neural foraminal narrowing. The disc herniation is in the region of the left L3 exiting nerve root. At L4-5 there is 2-3 mm T2 hyperintensity along the left side of the disc bulge consistent with disc annular tear. No spinal stenosis is identified. There is mild bilateral neural foraminal narrowing. At L5-S1 there is 3 mm disc bulge also with T2 hyperintensity and on the posterior disc margin consistent with disc annular tear. No spinal stenosis is seen. There is mild bilateral neural foraminal narrowing mostly in the right. The remaining lumbar levels appear within normal limits. with GIven 10 mg decadron and toradol in ED as well as 4 mg morphine x2. Patient appears to be doing much better but still unable to ambulate secondary to pain. Patient has tried Stretching TENS unit, ibuprofen and muscle relaxer, all of which are transiently helpful but symptoms continuing to get worse overall. She is allergic to aspirin and seafood, she has a history of thyroid cancer that has been removed. She takes no medication regularly. Principal Diagnosis Low back pain - L3-4 left disc herniation and back muscle spasms Discharge Exam Patient notes weakness with hip flexion more so than what she would expect for her pain. No foot drop. Doing much better than yesterday and keen to go home. Constitutional well developed and + morbidly obese; not in distress Eyes + anicteric sclerae; normal pupil size Respiratory normal respiratory effort; no respiratory distress Gastrointestinal (Abdomen) normal bowel sounds, soft, nontender, no hepatosplenomegaly Musculoskeletal Spine: lumbar spine normal to inspection, + lumbar spinal tenderness and + straight leg raise positive Skin no rashes, warm and dry Neurologic awake No foot drop b/l. Left knee extension and hip flexion intact but limited by pain in her back. Discharge Data Allergies Allergy/AdvReac Type Severity Reaction Status Date / Time aspirin AdvReac Intermediate Gastrointestinal Verified 01/10/20 22:39 Upset codeine AdvReac Intermediate Gastrointestinal Verified 01/10/20 22:39 Upset Fish AdvReac Intermediate HIVES/VOMIT/TURN Uncoded 01/10/20 22:39 RED Consultations 01/11/20 01:01 ED Decision to Admit Stat 01/11/20 01:59 Consult Pain Management Stat Ordered Studies 01/10/20 22:26 MR lumbar spine wo con Stat Hospital Course (1) Lumbar herniated disc: Lorie Silva is a 39 year old female admitted to [facility] from January 09 to 2019 due to intractable low back pain. This improved overnight with IV Decadron, morphine and Ativan. MRI showed a small disc herniations at L3-4, L4-5 and L5-S1 levels although suspect the majority of her pain is due to muscle spasms based on history. She was reviewed by pain management and recommended gabapentin for nerve pain, baclofen for muscle spasm and Wild Rose as needed for pain not controlled with acetaminophen. Also prescribed tapering dose of Decadron. Recommend referral to pain management if unable to control pain with above interventions for consideration fo epidural spinal infection. She was also noted to have elevated glucose. HbA1C 7.2. She noted much worse diet high in soda and flour (pizza) therefore recommended treating with diet and exercise initially and repeating HbA1C in approximately 3 months. Since she had normal glucose values in May therefore suspect she can achieve this again without medications. (2) Low back pain: (3) Ambulatory dysfunction: (4) Morbid obesity: (5) Type 2 diabetes mellitus: Total Time Total Time Spent Total Time Spent (In Minutes): 35 Discharge Plan Discharge Items Patient Disposition: Home - Self-Care Reason For Visit: BACK PAIN Discharge Diagnosis: Low back pain - L3-4 left disc herniation and back muscle spasms Goals: Pain relief Activity: As commented below Activity Comment: See physical therapy recommendations Lifting: No more than 5 pounds Lifting Comment: use proper lifting techinique, lifting limit until pain fully resolved Bathing: No limitations Exercise/Sports: Gradually increase as tolerated Driving/Machine Use: No limitations Weightbearing: Full weightbearing Non-emergency contact: Primary Care Provider Call non-emergency contact if: you have any medication questions and your symptoms worsen Follow-up/Referrals: Andrez Márquez [Primary Care Provider] - (no routine follow up required) Diet: Carb Consistent or DM2 Addtl Attending Provider Instructions: You were admitted to [facility] from January 09 to 2019 due to intractable low back pain. This improved with steroids (Decadron), morphine (for pain) and Ativan (for muscle spasms). MRI showed a small disc herniations at L3-4, L4-5 and L5-S1 levels although suspect the majority of your pain is due to muscle spasms based on your history. You were reviewed by pain management and recommended gabapentin for nerve pain, baclofen for muscle spasm and Wild Rose as needed for pain not controlled with acetaminophen. We will also prescribe a tapering dose of steroids since this has been helpful. While on steroids recommend not taking ibuprofen or other over the counter pain medication except for acetaminophen as this can increase your risk of gastritis and bleeding from your stomach. After the steroids have finished you can go back to taking ibuprofen as needed for pain. If you develop abdominal pain or excessive heartburn please contact your primary care physician. If you back pain is not controlled with management above recommend contacting for primary care provider to discuss possible need for referral to pain management. You were also diagnosed with type 2 diabetes mellitus - given increased soda consumption and recent normal glucose values back in May recommend this is treated with stopped soda consumption and reducing carbohydrates. Please follow up with your primary care physician for a repeat fasting glucose and HbA1C test in approximately 3 months to check if you are still diabetic. Please follow up with your primary care provider if still having weakness in your left hip flexion when the pain has gone. Kind regards, Dr Rob Rojas Pending Studies at Discharge: No Studies:: MR lumbar spine wo con CLINICAL HISTORY: Severe low back pain, and inability to ambulate. TECHNIQUE: Sagittal and axial T1, T2 and STIR images were obtained. COMPARISON STUDY: No previous studies for comparison. OBSERVATIONS: There is mild distention of the urinary bladder. The vertebral bodies and posterior elements appear intact. There is no abnormal bony signal present to suggest a marrow replacement process. L1-2: No disc protrusions or extrusions. No evidence of spinal canal or neural foraminal compromise. L2-3: No disc protrusions or extrusions. No evidence of spinal canal or neural foraminal compromise. L3-4: There is a mild circumferential disc bulge. There is a small left lateral and foraminal disc protrusion with minor left-sided foraminal narrowing. There is no significant spinal or foraminal stenosis. L4-5: There is an annular fissure and tiny broad-based central disc protrusion. This has minimal impact on the anterior thecal sac. There is no significant foraminal narrowing L5-S1: There is an annular fissure and tiny broad-based central disc protrusion. There is no significant spinal or foraminal stenosis. There is mild facet joint arthropathy. The conus medullaris and cauda equina appear normal. IMPRESSION: 1. Small left lateral and foraminal disc protrusion at the L3-4 level with minor left-sided foraminal narrowing 2. Annular fissures and tiny broad-based central disc protrusions at the L4-5 and L5-S1 levels. Stand-Alone Forms: Monthlys, Smoking Cessation Medications and DC Order Prescriptions: New dexamethasone [Decadron] 4 mg tablet See Rx Instructions .ROUTE .COMPLEX Qty: 30 RF: 0 gabapentin 300 mg capsule 300 mg PO BID 30 Days Qty: 60 RF: 0 baclofen 10 mg tablet 10 mg PO BID PRN (Reason: Back spasm) Qty: 30 RF: 0 hydrocodone-acetaminophen [Wild Rose] 5-325 mg tablet 1 tab PO Q8H PRN (Reason: pain) Qty: 14 RF: 0 Continued ibuprofen 800 mg Tablet 800 mg PO Q8H PRN (Reason: Pain) RF: 0 Discharge Orders: Discharge Order (Routine); Ordered 01/11/20 Ordered By: Rob Woodward/Other Patient Handouts: Understanding Carbohydrates, Back Safety Bending, Low Back Pain Self Care, Diabetes Carbs Fats Protein Admission Data Admit Date/Time: 01/11/20 01:50 Attending Provider: Rob Rojas Admit Provider: Bob Lambert Primary Care Provider: Andrez Márquez Other Providers: Joyce Fay Other Interventions: Discharge Summary Assessment (RN) Last Done: 01/11/20 11:58 DC Date/Time DO NOT enter until pt leaves facility: 01/11/20 13:00 Coding Level of Care Code 99133 OBS Care - Discharge Diagnoses Lumbar herniated disc M51.26 Low back pain M54.5 Ambulatory dysfunction R26.2 Morbid obesity E66.01 Type 2 diabetes mellitus E11.9
--- NOTE | 2020-01-12 00:23 | Billing Data ---
Date of Service January 12, 2020 Coding Level of Care Code 67529 OBS Care - Level 3
== END 2020-01-11 13:00 | disposition home or self-care (01) ==
LOC: ED 21:58 → 2W 21:58 → SUATTDRO 01-11 01:50 → 2W 01-11 03:26